=== PATIENT | female | born 1945 | race Caucasian/White ===

== ENCOUNTER → 2016-09-21 | Outpatient (CLI) | payer OTHER ==
[~2016-09-21] MED LIST: ALL60 PO; ASPEC81 PO; CLTP PO; DRV100 PO; FBR PO; SIMV40TA2 PO
[2016-09-21 09:47] LABS: ESTIMATED AVERAGE GLUCOSE 134 mg/dl; HA1C FLAG Normal (Normal)
[2016-09-21 09:55] LABS: BLOOD UREA NITROGEN 16 mg/dl (7-18); BUN/CREATININE RATIO 21.5 (10-20); CALCIUM 9.3 mg/dl (8.5-10.1); CARBON DIOXIDE 29 mmol/L (21-32); CHLORIDE 104 mmol/L (98-107); CREATININE 0.74 mg/dl (0.60-1.20); GLUCOSE 119 mg/dl (70-99); POTASSIUM 3.9 mmol/L (3.5-5.1); SODIUM 141 mmol/L (136-145)
[2016-09-21 09:59] LABS: CHOLESTEROL 173 mg/dl (0-200); HDL CHOLESTEROL 57 mg/dl; TRIGLYCERIDES 112 mg/dl (0-150); VERY LOW DENSITY LIPOPROT CALC 22 mg/dl
== END | disposition home or self-care (01) ==
LOC: C.LAB 08:26
PROVIDERS: ATTEND Internal Medicine
DX: Z00.00 Encounter for general adult medical examination without abnormal findings (principal); E78.5 Hyperlipidemia, unspecified; E11.9 Type 2 diabetes mellitus without complications

== ENCOUNTER → 2016-10-03 | Outpatient (CLI) | payer OTHER ==
--- NOTE | 2016-10-03 16:47 | MAMMOGRAPHY REPORT ---
BILATERAL DIGITAL SCREENING MAMMOGRAM WITH CAD: 10/03/2016 CLINICAL HISTORY: Routine screening. Patient has no complaints. TECHNIQUE: Bilateral CC and MLO views were obtained. Current study was also evaluated with a Comput er Aided Detection (CAD) system. COMPARISON: Comparison is made to exams dated: 10/01/2015 mammogram, 08/12/2013 mammogram, 08/19/2014 mammogram, 08/09/2012 mammogram, 07/26/2011 mammogram, and 07/22/2010 mammogram - [facility]. BREAST COMPOSITION: The tissue of both breasts is heterogeneously dense, which may obscure small ma sses. FINDINGS: There are 2 circumscribed subcentimeter benign-appearing masses in the lateral anterior le ft breast on the CC view, that are unchanged in size dating back to at least 07/15/2008, therefore l ikely benign. There are stable scattered benign-appearing round and punctate microcalcifications in the breasts. No suspicious mass, architectural distortion or cluster of microcalcifications is see n. IMPRESSION: ACR BI-RADS CATEGORY 1: NEGATIVE There is no mammographic evidence of malignancy. A 1 year screening mammogram is recommended. The p atient will receive written notification of the results. Approximately 10% of breast cancers are not detected with mammography. A negative mammographic repor t should not delay biopsy if a clinically suggestive mass is present. Marisol Guzman M.D. ay/:10/03/2016 15:01:03 Rotary Drill Operator: Erin CAN(R)(M), [facility] letter sent: Normal 1/2 BI-RADS Code: ACR BI-RADS Category 1: Negative
== END | disposition home or self-care (01) ==
LOC: C.MAMM 13:53
PROVIDERS: ATTEND Internal Medicine
DX: Z12.31 Encounter for screening mammogram for malignant neoplasm of breast (principal)

== ENCOUNTER → 2016-10-04 | Outpatient (CLI) | payer OTHER | END | disposition home or self-care (01) | LOC: C.LABSPEC 12:58 | PROVIDERS: ATTEND Internal Medicine | DX: Z12.11 Encounter for screening for malignant neoplasm of colon (principal) ==

== ENCOUNTER → 2017-03-22 | Outpatient (CLI) | payer OTHER ==
[2017-03-22 09:58] LABS: ESTIMATED AVERAGE GLUCOSE 134 mg/dl; HA1C FLAG Normal (Normal)
[2017-03-22 10:27] LABS: BLOOD UREA NITROGEN 15 mg/dl (7-18); BUN/CREATININE RATIO 16.3 (10-20); CALCIUM 9.4 mg/dl (8.5-10.1); CARBON DIOXIDE 26 mmol/L (21-32); CHLORIDE 106 mmol/L (98-107); CREATININE 0.91 mg/dl (0.60-1.20); GLUCOSE 118 mg/dl (70-99); POTASSIUM 4.1 mmol/L (3.5-5.1); SODIUM 142 mmol/L (136-145)
[2017-03-22 10:33] LABS: CHOLESTEROL 154 mg/dl (0-200); HDL CHOLESTEROL 51 mg/dl; TRIGLYCERIDES 99 mg/dl (0-150); VERY LOW DENSITY LIPOPROT CALC 20 mg/dl
[2017-03-22 10:42] LABS: RATIO 11.9 mcg/mg (0-30.0)
== END | disposition home or self-care (01) ==
LOC: C.LAB 08:07
PROVIDERS: ATTEND Internal Medicine
DX: E11.9 Type 2 diabetes mellitus without complications (principal); E78.5 Hyperlipidemia, unspecified

== ENCOUNTER → 2017-09-21 | Outpatient (CLI) | payer OTHER ==
[~2017-09-21] MED LIST changes: -ALL60 PO; +ASPCH81X PO; -ASPEC81 PO; +CHOL100010 PO; -CLTP PO; +COEN100C11 PO; -DRV100 PO; -FBR PO; +FEXO5TAB2 PO; +GLC/500 PO
[2017-09-21 16:14] LABS: BLOOD UREA NITROGEN 14 mg/dl (7-18); CALCIUM 9.1 mg/dl (8.5-10.1); CARBON DIOXIDE 30 mmol/L (21-32); GLUCOSE 96 mg/dl (70-99); POTASSIUM 3.8 mmol/L (3.5-5.1); SODIUM 138 mmol/L (136-145)
[2017-09-21 16:24] LABS: HEMATOCRIT 39.2 % (37-47); HEMOGLOBIN 13.4 g/dL (12.0-16.0); MEAN CELL VOLUME 89.7 fL (80-100); MEAN CORPUSCULAR HEMOGLOBIN 30.7 pg (25-34); MEAN CORPUSCULAR HGB CONC 34.2 g/dl (32-36); MEAN PLATELET VOLUME 11.4 fL (7.4-10.4); PLATELET COUNT 285 K/uL (130-400); RED CELL DISTRIBUTION WIDTH CV 12.3 % (11.5-14.5); RED CELL DISTRIBUTION WIDTH SD 40.2 fL (36.4-46.3); WHITE BLOOD COUNT 6.15 K/uL (4.8-10.8)
== END | disposition home or self-care (01) ==
LOC: C.LAB1850 14:48
PROVIDERS: ATTEND Obstetrics & Gynecology
DX: Z01.810 Encounter for preprocedural cardiovascular examination (principal); Z01.812 Encounter for preprocedural laboratory examination

== ENCOUNTER → 2017-09-26 | Outpatient (CLI) | payer OTHER ==
[2017-09-26 13:39] LABS: HEMOGLOBIN A1C 6.6 % (4.5-5.6)
[2017-09-26 14:09] LABS: CHOLESTEROL 129 mg/dl (0-200); LDL CHOLESTEROL (DIRECT) 83 mg/dl
== END | disposition home or self-care (01) ==
LOC: C.LABSPEC 12:58
PROVIDERS: ATTEND Internal Medicine
DX: E11.9 Type 2 diabetes mellitus without complications (principal); E78.5 Hyperlipidemia, unspecified

== ENCOUNTER → 2017-09-28 | Day surgery (SDC) | payer OTHER ==
[2017-09-13 14:37] VITALS: Ht 161.3 cm; Wt 63.2 kg
[~2017-09-28] VITALS: Ht 161.3 cm; Wt 63.2 kg
[~2017-09-28] MED LIST changes: +ATROPINE SULFATE 0.1 MG/ML 5ML SYR IV PRN; +DEXAMETHASONE SOD INJ 4 MG/ML VIAL ONE; +EpHEDrine SULFATE INJ 50 MG/ML AMP IV PRN; +EpHEDrine SULFATE INJ 50 MG/ML AMP ONE; +FENTANYL CITRATE INJ 50 MCG/1 ML 2 ML VIAL IV PRN; +FENTANYL CITRATE INJ 50 MCG/1 ML 2 ML VIAL ONE; +HYDROmorphone INJ 1 MG/ML SYR IV PRN; +KETOROLAC TROMETHAMINE 30 MG/ML VIAL ONE; +LACTATED RINGER'S 1000ML 1,000 ML IV SCH; +LIDOCAINE HCL 2% 2 ML VIAL (20MG/ML) ONE; +MIDAZOLAM HCL 1 MG/ML 2ML VIAL ONE; +ONDANSETRON INJ 2 MG/ML 2 ML VIAL IV PRN; +ONDANSETRON INJ 2 MG/ML 2 ML VIAL ONE; +OXYCODONE/ACETAMINOPHEN 5-325 TAB PO PRN; +PHENYLEPHRINE 100MCG/ML 5ML SYR IV PRN; +PROMETHAZINE HCL INJ 25 MG in SODIUM CHLORIDE 0.9% 50ML 50 ML IV PRN; +PROPOFOL IV EMULSION 10 MG/ML 20 ML VIAL IV ONE; +SODIUM CHLORIDE 0.9% 1000ML 1,000 ML IV SCH
--- NOTE | 2017-09-28 06:54 | History & Physical Bridge - SC ---
H&P Re-Evaluation Bridge Note: I have examined the patient, reviewed the History & Physical and in the interval since the performance of the History & Physical I have noted the following changes of clinical significance: No changes noted
--- NOTE | 2017-09-28 07:49 | [facility] Post Operative Brief Note ---
Immediate Operative Summary Operative Date Sep 28, 2017. Pre-Operative Diagnosis Post Menopausal Bleeding Post-Operative Diagnosis same Procedure(s) Performed Fractional Dilatation And Curettage, Hysteroscopy, Polypectomy Surgeon Dr Ruano Mobile Home Technician Surgeon(s) none Estimated Blood Loss 5 ml Findings Large amount of fluffy endometrium, with vasculature within. Right tubal ostia visualized, left not visualized due to inability to see around the intrauterine mass. Specimens 1. Urine culture and sensitivity, urinalysis A) Endocervical curettings B) Endometrial curettings Drains Bladder drained prior to procedure, sent for UA C&S Anesthesia general Complication(s) None Disposition Recovery Room / PACU
--- NOTE | 2017-09-28 07:52 | Discharge Instructions-SurgCtr ---
Discharge Instructions Date of Service Sep 28, 2017. Visit Reason for Visit: Post Menopausal Bleeding Discharge Discharge Diagnosis / Problem: postmenopausal bleeding Discharge Goals Goal(s): Diagnostic testing Medications Stopped Medications Name(s): Metformin last taken 09/25/17 Activity Recommendations Activity Limitations: per Instructions/Follow-up section Anesthesia . Post Anesthesia Instructions: If you have had General Anesthesia or IV Sedation: * Do not drive today. * Resume driving when surgeon permits. * Do not make important decisions or sign legal documents today. * Call surgeon for: 1. Temperature elevations greater than 101 degrees F. 2. Uncontrollable pain. 3. Excessive bleeding. 4. Persistent nausea and vomiting. 5. Medication intolerance (nausea, vomiting or rash). * For nausea and vomiting use only clear liquids such as: tea, soda, bouillon until nausea subsides, then gradually increase diet as tolerated. * If you have any concerns or questions, call your surgeon's office. If physician is unavailable and it is an emergency, call 911 or go to the nearest emergency room. . Instructions / Follow-Up Instructions / Follow-Up ACTIVITY RECOMMENDATIONS: * Avoid tampons, douching, hot tubs, pools, and intercourse until bleeding has stopped. * May shower as usual. * No strenuous activity for 24-48 hours. After 24-48 hours, you may do anything you feel like doing (driving and sports are okay). SPECIAL CARE INSTRUCTIONS: Special Diet: * Mild nausea may occur in the immediate post-operative period. * Take clear liquids such as tea, cola or bouillon until all nausea has subsided; you may then resume your normal diet. Special Care: * Light bleeding and vaginal spotting can last from a few days to 3-4 weeks. Call your doctor if bleeding becomes heavier than the heaviest part of your period. * Check your temperature twice a day for one week. If it goes above 100.4 degrees Fahrenheit (38.0 Celsius), notify your doctor. * Call your doctor's office for an appointment for 6 weeks after your surgery. FOLLOW-UP VISIT: Call your doctor's office for an appointment for 6 weeks after your surgery. Diet Recommendations Home Diet: resume previous diet Procedures Procedures Performed: Fractional Dilatation And Curettage, Hysteroscopy, Polypectomy Pending Studies Studies pending at discharge: yes List of pending studies: UA C&S, pathology results Medical Emergencies . Who to Call and When: Medical Emergencies: If at any time you feel your situation is an emergency, please call 911 immediately. . Non-Emergent Contact Non-Emergency issues call your: Primary Care Provider, Performance Tester . . "Provider Documentation" section prepared by Iliana Ruano. .
--- NOTE | 2017-09-28 08:36 | OPERATIVE REPORT ---
DATE OF OPERATION: 09/28/2017 PREOPERATIVE DIAGNOSIS: Postmenopausal bleeding. POSTOPERATIVE DIAGNOSIS: Same. PROCEDURES PERFORMED: Fractional dilation and curettage, hysteroscopy. Polypectomy was not performed, although it is erroneously listed in the brief operative note that will be corrected in the charting. SURGEON: Iliana Ruano D.O. EDGER LINER: None. ESTIMATED BLOOD LOSS: 5 mL. FINDINGS: Large amount of fluffy endometrium with vasculature within, right tubal ostia visualized. The left was not visualized due to inability to see around the intrauterine mass. SPECIMENS: Urine culture and sensitivity in urinalysis, endometrial curettings and endocervical curettings. DRAINS: Bladder drained prior to procedure. ANESTHESIA: General. COMPLICATIONS: None. DISPOSITION: Stable and good to recovery area. INDICATIONS FOR PROCEDURE: The patient is a 72-year-old who had episodes of postmenopausal bleeding. Ultrasound showed a concerning endometrial mass so she was taken to the operating room for D&C. OPERATION AND FINDINGS: DESCRIPTION OF PROCEDURE: The patient was seen in the preoperative holding area where risks, benefits, alternatives to surgery were reviewed. She elected to proceed with surgery. All questions were answered. She had previously signed informed consent in the office under no duress. She was taken to the operating room where general anesthesia was administered. She was prepared and draped in the usual sterile fashion with feet in Yellofin stirrups in the dorsal lithotomy position. A timeout was confirmed. The bladder was drained prior to procedure for clear yellow urine. A weighted speculum was placed in the vagina. The cervix was visualized and the anterior lip was grasped with a single tooth tenaculum. The endocervical curettage was undertaken first. This specimen was sent to pathology. Next, the uterus was sounded to 8 cm and the cervix was gently dilated sequentially to admit a hysteroscope. Hysteroscope was inserted. The above noted findings were seen. Pictures were taken. Hysteroscope was withdrawn and a gentle curettage with a sharp curette was undertaken. All of this sample was sent to pathology labeled endometrial curettings. All instruments were removed from the vagina. Excellent hemostasis was noted. The patient was awoken from anesthesia and taken to recovery area in stable and good condition. I attest to the content of the Intraoperative Record and any orders documented therein. Any exception s are noted below.
[2017-09-28 08:44] VITALS: TEMP 36.5
--- NOTE | 2017-09-28 09:06 | Anesthesia Progress Nt - [facility] ---
Anesthesia Post Op Note Date & Time Sep 28, 2017 at 09:06 Vital Signs Pain Intensity: 0 Vital Signs Past 12 Hours Date Time Temp Pulse Resp B/P (MAP) Pulse Ox O2 Delivery O2 Flow Rate FiO2 09/28/17 08:44 36.5 70 16 128/64 (85) 98 Room Air 09/28/17 08:21 75 13 98 09/28/17 08:21 75 13 09/28/17 08:20 129/51 09/28/17 08:19 37.1 75 14 129/73 100 Room Air 09/28/17 08:16 75 11 126/53 98 09/28/17 08:16 75 11 09/28/17 08:11 84 17 99 09/28/17 08:11 83 17 09/28/17 08:10 132/60 09/28/17 08:06 90 16 100 09/28/17 08:06 89 16 09/28/17 08:05 134/62 09/28/17 08:01 96 17 100 09/28/17 08:01 96 17 09/28/17 08:00 127/63 09/28/17 07:56 97 18 09/28/17 07:56 94 18 100 09/28/17 07:55 111/57 09/28/17 07:52 110/61 09/28/17 07:51 83 09/28/17 07:51 36.2 93 12 110/70 100 Diffusion Mask 6 09/28/17 07:51 83 100 09/28/17 06:46 36.8 83 20 154/67 (96) 99 Room Air Notes Mental Status: alert / awake / arousable, participated in evaluation Pt Amnestic to Procedure: Yes Nausea / Vomiting: adequately controlled Pain: adequately controlled Airway Patency, RR, SpO2: stable & adequate BP & HR: stable & adequate Hydration State: stable & adequate Anesthetic Complications: no major complications apparent
[2017-09-28 09:12] VITALS: BP 139/65; PULSE 78; O2SAT 100
== END | disposition home or self-care (01) ==
LOC: X.SURG 06:20
PROVIDERS: ATTEND Obstetrics & Gynecology
DX: N95.0 Postmenopausal bleeding (principal); E11.9 Type 2 diabetes mellitus without complications; E78.5 Hyperlipidemia, unspecified; M19.90 Unspecified osteoarthritis, unspecified site; Z86.73 Personal history of transient ischemic attack (TIA), and cerebral infarction without residual deficits; Z79.82 Long term (current) use of aspirin; Z79.84 Long term (current) use of oral hypoglycemic drugs; Z79.899 Other long term (current) drug therapy

== ENCOUNTER → 2017-10-04 | Outpatient (CLI) | payer OTHER ==
[~2017-10-04] MED LIST changes: -ATROPINE SULFATE 0.1 MG/ML 5ML SYR IV PRN; -DEXAMETHASONE SOD INJ 4 MG/ML VIAL ONE; -EpHEDrine SULFATE INJ 50 MG/ML AMP IV PRN; -EpHEDrine SULFATE INJ 50 MG/ML AMP ONE; -FENTANYL CITRATE INJ 50 MCG/1 ML 2 ML VIAL IV PRN; -FENTANYL CITRATE INJ 50 MCG/1 ML 2 ML VIAL ONE; -HYDROmorphone INJ 1 MG/ML SYR IV PRN; -KETOROLAC TROMETHAMINE 30 MG/ML VIAL ONE; -LACTATED RINGER'S 1000ML 1,000 ML IV SCH; -LIDOCAINE HCL 2% 2 ML VIAL (20MG/ML) ONE; -MIDAZOLAM HCL 1 MG/ML 2ML VIAL ONE; -ONDANSETRON INJ 2 MG/ML 2 ML VIAL IV PRN; -ONDANSETRON INJ 2 MG/ML 2 ML VIAL ONE; -OXYCODONE/ACETAMINOPHEN 5-325 TAB PO PRN; -PHENYLEPHRINE 100MCG/ML 5ML SYR IV PRN; -PROMETHAZINE HCL INJ 25 MG in SODIUM CHLORIDE 0.9% 50ML 50 ML IV PRN; -PROPOFOL IV EMULSION 10 MG/ML 20 ML VIAL IV ONE; -SODIUM CHLORIDE 0.9% 1000ML 1,000 ML IV SCH
--- NOTE | 2017-10-04 15:01 | DIAGNOSTIC IMAGING REPORT ---
CHEST 2 VIEWS ROUTINE HISTORY: Preop. COMPARISON: Chest 07/16/2009. FINDINGS: The lungs are clear. Cardiac silhouette is normal in size. No pleural effusions. No pneumothorax. IMPRESSION: No acute process. Electronically signed by: Sumanth Pal M.D. 10/04/2017 3:00 PM Dictated Date/Time: 10/04/2017 2:56 PM
== END | disposition home or self-care (01) ==
LOC: C.RAD1850 14:39
PROVIDERS: ATTEND Obstetrics & Gynecology Gynecologic Oncology
DX: Z01.818 Encounter for other preprocedural examination (principal); C54.1 Malignant neoplasm of endometrium

== ENCOUNTER → 2017-10-04 | Outpatient (CLI) | payer OTHER ==
--- NOTE | 2017-10-05 13:43 | MAMMOGRAPHY REPORT ---
BILATERAL DIGITAL SCREENING MAMMOGRAM TOMOSYNTHESIS WITH CAD: 10/04/2017 CLINICAL HISTORY: Routine screening. TECHNIQUE: Breast tomosynthesis in addition to standard 2D mammography was performed. Current study was also evaluated with a Computer Aided Detection (CAD) system. COMPARISON: Comparison is made to exams dated: 10/03/2016 mammogram, 10/01/2015 mammogram, 08/19/2014 m ammogram, 08/12/2013 mammogram, 08/09/2012 mammogram, and 07/26/2011 mammogram - [facility]. BREAST COMPOSITION: The tissue of both breasts is heterogeneously dense, which may obscure small mas ses. FINDINGS: A benign circumscribed 8mm mass in the lateral anterior left breast is stable in size dati ng back to at least 07/26/2011, therefore considered benign. No new suspicious mass, architectural d istortion or cluster of microcalcifications is seen. IMPRESSION: ACR BI-RADS CATEGORY 1: NEGATIVE There is no mammographic evidence of malignancy. A 1 year screening mammogram is recommended. The pa tient will receive written notification of the results. Approximately 10% of breast cancers are not detected with mammography. A negative mammographic report should not delay biopsy if a clinically suggestive mass is present. Marisol Guzman M.D. ay/:10/04/2017 15:37:23 Facilities Maintenance Worker: Brain CAN(Brii)(M), [facility] letter sent: Normal 1/2 BI-RADS Code: ACR BI-RADS Category 1: Negative
== END | disposition home or self-care (01) ==
LOC: C.MAMM 14:05
PROVIDERS: ATTEND Internal Medicine
DX: Z12.31 Encounter for screening mammogram for malignant neoplasm of breast (principal)

== ENCOUNTER → 2017-12-04 | Day surgery (SDC) | payer OTHER ==
[2017-11-29 15:01] VITALS: BMI 23.0
[~2017-12-04] VITALS: Ht 160 cm; Wt 61.4 kg
[~2017-12-04] MED LIST changes: +ATROPINE SULFATE 0.1 MG/ML 5ML SYR IV PRN; +BUPIVACAINE 0.5 % 5 MG/1 ML MPF 30ML VIAL ONE; +CEFAZOLIN 2000MG IV PUSH 15 ML IV SCH; +EpHEDrine SULFATE INJ 50 MG/ML AMP IV PRN; +FENTANYL CITRATE INJ 50 MCG/1 ML 2 ML VIAL IV PRN; +FENTANYL CITRATE INJ 50 MCG/1 ML 2 ML VIAL ONE; +HEPARIN SOD (PORCINE) 1000 UNIT/ML 10 ML VIAL ONE; +HYDROCODONE/ACETAMIN 5/325MG TAB PO PRN; +IBUP-1050 PO; +LACTATED RINGER'S 1000ML 1,000 ML IV SCH; +LIDOCAINE HCL 2% 2 ML VIAL (20MG/ML) ONE; +LIDOCAINE/EPINEPHRINE 1% 20 ML VIAL ONE; +MIDAZOLAM HCL 1 MG/ML 2ML VIAL ONE; +MoRPHine SULFATE 2 MG/ML CARP IV PRN; +NAPR1TAB9 PO; +ONDANSETRON INJ 2 MG/ML 2 ML VIAL IV PRN; +PROPOFOL IV EMULSION 10 MG/ML 20 ML VIAL IV ONE
[2017-12-04 06:31] VITALS: BP 160/59; PULSE 76; TEMP 36.5; O2SAT 99; Ht 160 cm; Wt 61.4 kg
--- NOTE | 2017-12-04 09:07 | Discharge Instructions ---
Discharge Instructions Date of Service Dec 04, 2017. Visit Reason for Visit: Endometrial Cancer, Diabetes Discharge Discharge Diagnosis / Problem: A-port Discharge Goals Goal(s): Therapeutic intervention Activity Recommendations Activity Limitations: resume your previous activity Shower/Bathe: no limitations Anesthesia . Post Anesthesia Instructions: If you have had General Anesthesia or IV Sedation: * Do not drive today. * Resume driving when surgeon permits. * Do not make important decisions or sign legal documents today. * Call surgeon for: 1. Temperature elevations greater than 101 degrees F. 2. Uncontrollable pain. 3. Excessive bleeding. 4. Persistent nausea and vomiting. 5. Medication intolerance (nausea, vomiting or rash). * For nausea and vomiting use only clear liquids such as: tea, soda, bouillon until nausea subsides, then gradually increase diet as tolerated. * If you have any concerns or questions, call your surgeon's office. If physician is unavailable and it is an emergency, call 911 or go to the nearest emergency room. . Instructions / Follow-Up Instructions / Follow-Up Dr. Nevarez office in 1-2 weeks as planned, call [phone] if you have any questions or need to schedule Diet Recommendations Recommended Home Diet: no limitations Pending Studies Studies pending at discharge: no Medical Emergencies . Who to Call and When: Medical Emergencies: If at any time you feel your situation is an emergency, please call 911 immediately. . Non-Emergent Contact Non-Emergency issues call your: Surgeon Call Non-Emergent contact if: you have a fever, temperature is above 101.5, your pain is not controlled, wound has increased redness, you have any medication questions . . "Provider Documentation" section prepared by Martin Allen. .
--- NOTE | 2017-12-04 09:25 | [facility] Post Operative Brief Note ---
Immediate Operative Summary Operative Date Dec 04, 2017. Pre-Operative Diagnosis Endometrial Carcinoma Post-Operative Diagnosis Endometrial Carcinoma Procedure(s) Performed Left Internal Jugular Vein Mediport Placement with Real-time Ultrasound Guidance and Fluoroscopy Surgeon Apparatus Cleaner Surgeon(s) None Estimated Blood Loss 7ML Findings Consistent with Post-Op Diagnosis Left Internal jugular vein port placement Specimens None per surgeon Drains None Anesthesia Type MAC Complication(s) none Disposition Accompanied Pt To Recover: no Disposition: Recovery Room / PACU
--- NOTE | 2017-12-04 09:29 | [facility] Operative Report ---
Operative Report Operative Date Dec 04, 2017. Pre-Operative Diagnosis Endometrial Carcinoma Post-Operative Diagnosis Same Procedure(s) Performed Left internal jugular vein port placement with real-time ultrasound guidance and fluoroscopy Surgeon Sugar Presser Surgeon(s) None Estimated Blood Loss 7ML Findings Left internal jugular vein accessed using real-time ultrasound guidance. Catheter placement confirmed with fluoroscopy. Specimens None per surgeon Drains None Anesthesia MAC/local Complication(s) None Disposition Recovery Room / PACU Indications 72-year-old female with endometrial cancer requiring chemotherapy, plan for port placement. The risks of the procedure were discussed, all questions were answered, and the patient agreed to proceed with surgery as planned. Description of Procedure The patient was properly identified, consented, and taken to the operating room where she was placed in the supine position with both arms tucked and a shoulder roll placed vertically. Monitored anesthesia care was induced. SCDs and a safety belt were placed. Preoperative antibiotics were administered. The patient's chest and neck was prepped and draped in the standard sterile fashion. Surgical timeout was performed and all parties were in agreement that this was the correct patient and procedure to be performed and we continued as planned. The patient was placed in Trendelenburg position. Local anesthetic was injected along the skin incision. Using real-time ultrasound guidance the left internal jugular vein was accessed using the access needle. The wire was placed and the needle was removed. Fluoroscopy confirmed placement into the internal jugular vein extending into the superior vena cava. Transverse skin incision was in the chest made and a pocket was created for the port. A subcutaneous tunnel was created and the catheter was brought from the neck incision into the chest incision. The dilator and peel-away sheath were inserted over the wire. The catheter was then inserted through the peel-away sheath and fluoroscopy confirmed placement into the superior vena cava. The catheter was cut and attached to the port. The port was secured into place with 3-0 Prolene sutures. A final x-ray revealed good placement of the port. The wound was irrigated and hemostasis was confirmed. The skin was closed with interrupted 3-0 Vicryl deep dermal sutures, followed by 4-0 Monocryl running subcuticular suture. Dermabond was placed over the wound. The port was accessed and rob blood easily and flushed easily. It was flushed with heparinized saline. The patient taken to the PACU where she recovered without apparent incident. All sponge, instrument and needle counts were correct at the conclusion of the procedure. The patient tolerated the procedure well. Chest x-ray was pending at the conclusion of this dictation. I attest to the content of the Intraoperative Record and any orders documented therein. Any exceptions are noted below.
--- NOTE | 2017-12-04 09:30 | [facility] Operative Report ---
Operative Report Operative Date Dec 04, 2017. Pre-Operative Diagnosis Endometrial Carcinoma Surgeon Findings Real-time ultrasound guidance was used to access the left internal jugular vein. Fluoroscopy was used and interpreted by the surgeon for placement of the catheter. A total of 15 seconds of fluoroscopy time was utilized. I attest to the content of the Intraoperative Record and any orders documented therein. Any exceptions are noted below.
--- NOTE | 2017-12-04 09:59 | DIAGNOSTIC IMAGING REPORT ---
SINGLE VIEW CHEST CLINICAL HISTORY: Infusion port placement. FINDINGS: An AP, portable, upright chest radiograph is compared to study dated 10/04/2017. The examination is degraded by portable technique and patient rotation. A left internal jugular central venous infusion port has been placed. The tip of the catheter projects over the SVC. The cardiomediastinal silhouette is unremarkable. Chronic interstitial thickening is similar to previous. No airspace consolidation or pleural effusion is identified. Mild apical scarring is observed. No pneumothorax is seen. The skeletal structures are osteopenic. Degenerative change is noted throughout the thoracic spine. IMPRESSION: 1. A left internal jugular central venous infusion port has been placed. No pneumothorax is seen post procedure. 2. No airspace consolidation or pleural effusion is identified. Electronically signed by: Jarrod Smith M.D. 12/04/2017 9:58 AM Dictated Date/Time: 12/04/2017 9:53 AM
[2017-12-04 10:10] VITALS: BP 158/81; PULSE 66; TEMP 36.5; O2SAT 98
[2017-12-04 10:38] VITALS: BP 161/62; PULSE 60; TEMP 36.7; O2SAT 97
--- NOTE | 2017-12-04 12:59 | Anesthesiology Progress Note ---
Anesthesia Post Op Note Date & Time Dec 04, 2017 at 12:59 Vital Signs Pain Intensity: 0 Vital Signs Past 12 Hours Date Time Temp Pulse Resp B/P (MAP) Pulse Ox O2 Delivery O2 Flow Rate FiO2 12/04/17 10:38 36.7 60 18 161/62 97 Room Air 12/04/17 10:10 36.5 66 18 158/81 98 Room Air 12/04/17 09:57 124/96 12/04/17 09:55 67 19 12/04/17 09:55 66 19 98 12/04/17 09:52 151/86 12/04/17 09:52 36.6 69 18 151/86 (111) 99 Room Air 12/04/17 09:50 67 17 99 12/04/17 09:50 66 17 12/04/17 09:47 143/77 12/04/17 09:45 70 24 98 12/04/17 09:45 70 24 12/04/17 09:42 117/66 12/04/17 09:40 72 24 12/04/17 09:40 72 24 96 12/04/17 09:37 133/66 12/04/17 09:35 71 13 12/04/17 09:35 72 13 98 12/04/17 09:34 79 10 12/04/17 09:34 80 10 99 12/04/17 09:34 80 10 99 12/04/17 09:34 79 10 12/04/17 09:31 128/62 12/04/17 09:31 128/62 12/04/17 09:29 73 18 128/55 (70) 98 Nasal Cannula 2 12/04/17 06:31 36.5 76 20 160/59 (92) 99 Room Air Notes Mental Status: alert / awake / arousable, participated in evaluation Pt Amnestic to Procedure: Yes Nausea / Vomiting: adequately controlled Pain: adequately controlled Airway Patency, RR, SpO2: stable & adequate BP & HR: stable & adequate Hydration State: stable & adequate Anesthetic Complications: no major complications apparent
== END | disposition home or self-care (01) ==
LOC: C.ACU 06:16
PROVIDERS: ATTEND Surgery
DX: C54.1 Malignant neoplasm of endometrium (principal); E11.9 Type 2 diabetes mellitus without complications; M19.90 Unspecified osteoarthritis, unspecified site; N95.0 Postmenopausal bleeding; Z90.710 Acquired absence of both cervix and uterus; Z90.722 Acquired absence of ovaries, bilateral; Z90.79 Acquired absence of other genital organ(s); Z79.82 Long term (current) use of aspirin; Z87.440 Personal history of urinary (tract) infections; Z83.3 Family history of diabetes mellitus; Z82.49 Family history of ischemic heart disease and other diseases of the circulatory system; Z80.0 Family history of malignant neoplasm of digestive organs; Z80.3 Family history of malignant neoplasm of breast

== ENCOUNTER → 2017-12-13 | Outpatient (CLI) | payer OTHER ==
[~2017-12-13] MED LIST changes: -ATROPINE SULFATE 0.1 MG/ML 5ML SYR IV PRN; -BUPIVACAINE 0.5 % 5 MG/1 ML MPF 30ML VIAL ONE; -CEFAZOLIN 2000MG IV PUSH 15 ML IV SCH; -EpHEDrine SULFATE INJ 50 MG/ML AMP IV PRN; -FENTANYL CITRATE INJ 50 MCG/1 ML 2 ML VIAL IV PRN; -FENTANYL CITRATE INJ 50 MCG/1 ML 2 ML VIAL ONE; -HEPARIN SOD (PORCINE) 1000 UNIT/ML 10 ML VIAL ONE; -HYDROCODONE/ACETAMIN 5/325MG TAB PO PRN; -LACTATED RINGER'S 1000ML 1,000 ML IV SCH; -LIDOCAINE HCL 2% 2 ML VIAL (20MG/ML) ONE; -LIDOCAINE/EPINEPHRINE 1% 20 ML VIAL ONE; -MIDAZOLAM HCL 1 MG/ML 2ML VIAL ONE; -MoRPHine SULFATE 2 MG/ML CARP IV PRN; -ONDANSETRON INJ 2 MG/ML 2 ML VIAL IV PRN; -PROPOFOL IV EMULSION 10 MG/ML 20 ML VIAL IV ONE
--- NOTE | 2017-12-13 14:22 | DIAGNOSTIC IMAGING REPORT ---
A-PORT CHECK CLINICAL HISTORY: Arm pain. Axillary pain. Recent port insertion. COMPARISON STUDY: Chest radiograph December 04, 2017. Fluoroscopy time: 0.1 minutes. FINDINGS: Datastage Developer image demonstrates intact left internal jugular vein [id number] with tip projecting over the distal SVC. Following injection of contrast, expected filling of the SVC was noted. The catheter appears intact. No contrast extravasation was noted. IMPRESSION: Patent, intact left internal jugular [id number]. No abnormality identified. Electronically signed by: Wiliam Brewster M.D. 12/13/2017 2:21 PM Dictated Date/Time: 12/13/2017 2:19 PM
== END | disposition home or self-care (01) ==
LOC: C.RAD 13:28
PROVIDERS: ATTEND Surgery
DX: M79.603 Pain in arm, unspecified (principal); M79.629 Pain in unspecified upper arm

== ENCOUNTER 2025-08-05 07:55 | Inpatient (IN) ==
--- NOTE | 2025-07-11 11:34 | PAT Medication Instructions ---
Medication Instructions Date of Service July 11, 2025 Home Medications fexofenadine 60 mg tablet 60 mg PO DAILY PRN ALLERGY RELIEF metformin 500 mg tablet 500 mg PO BID simvastatin 40 mg tablet 40 mg PO QPM aspirin 81 mg tablet,delayed release 81 mg PO QAM acetaminophen 500 mg tablet 500 mg PO QID PRN Pain cholecalciferol (vitamin D3) 50 mcg (2,000 unit) capsule (Vitamin D3) 50 mcg PO QAM coenzyme Q10 100 mg capsule (Co Q-10) 100 mg PO QAM horse chestnut seed extract 250 mg capsule 250 mg PO BID turmeric root extract 500 mg tablet 500 mg PO BID ASK your prescriber and surgeon aspirin 81 mg tablet,delayed release 81 mg PO QAM STOP taking 2 weeks before surgery (or as soon as possible if surgery is within 2 weeks) coenzyme Q10 100 mg capsule (Co Q-10) 100 mg PO QAM horse chestnut seed extract 250 mg capsule 250 mg PO BID turmeric root extract 500 mg tablet 500 mg PO BID DO NOT take the morning of surgery fexofenadine 60 mg tablet 60 mg PO DAILY PRN ALLERGY RELIEF metformin 500 mg tablet 500 mg PO BID cholecalciferol (vitamin D3) 50 mcg (2,000 unit) capsule (Vitamin D3) 50 mcg PO QAM Take morning of surgery With a small sip of water, OTHERWISE NOTHING TO EAT OR DRINK AFTER MIDNIGHT: acetaminophen 500 mg tablet 500 mg PO QID PRN Pain (if needed) Take evening before surgery fexofenadine 60 mg tablet 60 mg PO DAILY PRN ALLERGY RELIEF (if needed) metformin 500 mg tablet 500 mg PO BID simvastatin 40 mg tablet 40 mg PO QPM acetaminophen 500 mg tablet 500 mg PO QID PRN Pain (if needed) Other Notes If you have any questions please call us at [phone] or [phone] or [phone] or [phone]
--- NOTE | 2025-07-22 14:01 | Anesthesiology Consultation ---
Date of Service July 22, 2025 Assessment & Plan (1) Encounter for pre-operative examination: Chart Review Chart Review: Acceptable Risk for Surgery and Patient seen in Pre Admission Testing - Please send preop lab results to PCP (Dr. Mac) for continuity of care - Check BSG AM DOS Sensitive to narcotics - seems to tolerate to Dilaudid the best per patient Per PAT appt on 07/22/25, no recent illness/disease exposures, illness related symptoms, or recent illness/disease positive tests. Will leave to surgeon's discretion if preop Covid testing needed PCP office visit 07/09/25= "... chronic back pain... to have surgery on August 05... preop labs to done 07/22/25... EKG was normal on 02/25/25... Pt cleared to proceed with surgery without further testing, pending the lab results of 07/22/25..." PCP order form 07/09/25= "Claire cleared for surgery without further testing if labs of 07/22/25 ok" (No issues noted on preop labs) Teaching & Discussion Pre-Anesthesia Teaching/Discussion Notes: Instructed NPO after midnight before surgery,except medications with 15 cc of water. Medication instructions provided according to the PAT guidelines. History Surgery Operation Date: 08/05/25 07:45 Proposed Procedures p L5-S1 Hardware Removal, L4-L5 Decompression and Fusion, L3 Kyphoplasty - David Eisenberg, Height/Weight Height: 5 ft 3 in Weight: 57 kg Allergies Allergy/AdvReac Type Severity Reaction Status Date / Time narcotics AdvReac "sensitive Uncoded 07/11/25 11:19 to ALL narcotics" Medications Home Medications Medication Instructions Recorded Confirmed Last Taken fexofenadine 60 mg tablet 60 mg PO DAILY PRN ALLERGY RELIEF 03/05/20 07/11/25 Unknown metformin 500 mg tablet 500 mg PO BID 03/05/20 07/11/25 03/19/20 simvastatin 40 mg tablet 40 mg PO QPM 03/05/20 07/11/25 03/19/20 aspirin 81 mg tablet,delayed 81 mg PO QAM 03/12/20 07/11/25 03/19/20 release acetaminophen 500 mg tablet 500 mg PO QID PRN Pain 07/11/25 07/11/25 Unknown cholecalciferol (vitamin D3) 50 50 mcg PO QAM 07/11/25 07/11/25 Unknown mcg (2,000 unit) capsule (Vitamin D3) coenzyme Q10 100 mg capsule (Co 100 mg PO QAM 07/11/25 07/11/25 Unknown Q-10) horse chestnut seed extract 250 mg 250 mg PO BID 07/11/25 07/11/25 Unknown capsule turmeric root extract 500 mg tablet 500 mg PO BID 07/11/25 07/11/25 Unknown levothyroxine 75 mcg tablet 75 mcg PO DAILY 07/22/25 07/22/25 Unknown Past Medical History Medical History Degenerative disc disease Diabetes mellitus, type 2 NIDDM History of anesthesia reaction "sensitive to all narcotics" Hx of cancer of endometrium 2018- s/p hysterectomy; chemo and XRT Hx of migraines Hyperlipidemia hx Hypothyroidism Osteoarthritis Peripheral neuropathy minimal per pt, rt/lt feet from chemo Tinnitus Occ wears hearing aids Exercise / Class Metabolic Activity II 4-5 Yardwork/Stairs/Walk up hill (one flight of stairs- no chest pain or SOB ) Past Family History Family History Sister Family history of diabetes mellitus Family hx of colon cancer Past Surgical History Surgical History Breast lipoma LEFT SIDE REMOVED Fusion of spine 2009, lumbar H/O total hysterectomy laparoscopic, 2018 History of cataract surgery rt/lt History of colonoscopy History of laminectomy 1999, lumbar History of nasal septoplasty w/ sinus surgery History of removal of Port-a-Cath (03/27/20) Removal of mediport Dr. Nevarez 03-20-2020 History of tooth extraction Hx of lumpectomy left-lipoma removal [place] teeth removed Past Anesthesia History No Hx of Anesthesia Complications (does admit to "sensitivity" to medications, especially to narcotics ) and No Family Hx of Anesthesia Complications History of PONV No Hx of PONV and No Hx of Motion Sickness Social History Smoking Status: Never smoker Do You Dip or Chew Tobacco: No Hx Alcohol Use: Yes Alcohol type: wine alcohol intake frequency: holidays/special occasions only Hx Substance Use: No substance use type: does not use Review of Systems - Hx of snoring - denies apnea- no hx of sleep study Patient denies chest pain, shortness of breath, dyspnea on exertion, reflux, cough, wheezing, palpitations. No hx of seizures, stroke, [place]. No hx of blood clots or blood transfusions Physical Exam Vital Signs VITALS BP 161/74 (usually well controlled- usually 120s systolically at home per patient) P 75 TEMP 97.6 SP02 100% RESP 16 Constitutional no acute distress ENMT Mouth: no TMJ clicking Thyromental Distance: < 3.5 Finger Breadths (3.0) Mallampati Class: II Mouth / Teeth: 2 1. Crowns Permanent implant to side teeth Crowns to side teeth/molars/see picture Neck + limited neck extension Respiratory normal respiratory effort; no respiratory distress Auscultation: lungs clear to auscultation bilaterally; no wheezes Cardiovascular Rate/Rhythm: regular rate and regular rhythm Heart Sounds: no murmur Vessels: no carotid bruit Musculoskeletal Spine: no pain with cervical ROM Extremities: extremities normal to inspection Psychiatric Orientation: alert Lab Results Anesthesia Preop Results Results Anesthesia Widget: 2 WBC 6.31 K/ul (4.8-10.8) 07/22/25 Hgb 12.3 g/dL (12.0-16.0) 07/22/25 Hct 37.0 % (37.0-47.0) 07/22/25 Plt 229 K/uL (130-400) 07/22/25 Na 139 mmol/L (136-145) 07/22/25 K 4.2 mmol/L (3.5-5.1) 07/22/25 Cl 106 mmol/L (98-107) 07/22/25 CO2 27 mmol/L (21-32) 07/22/25 BUN 19 mg/dl (6-23) 07/22/25 Creat 0.77 mg/dl (0.6-1.2) 07/22/25 Glucose Level 128 mg/dl (70-99(Fasting)) H 07/22/25 PT 10.6 Seconds (9.0-12.0) 07/22/25 PTT 25 Seconds (21-31) 07/22/25 INR 1.0 (0.9-1.1) 07/22/25 TSH 1.812 uIu/ml (0.300-4.500) 07/02/25 HA1c 6.2 % (4.5-5.6) H 07/02/25 Urine Color Yellow 07/22/25 Urine Appearance Clear (Clear) 07/22/25 Urine pH 5.5 (4.5-7.5) 07/22/25 Urine Specific [place] 1.013 (1.000-1.030) 07/22/25 Urine Protein Negative (Negative) 07/22/25 Urine Glucose (UA) Negative (Negative) 07/22/25 Urine Ketones Negative (Negative) 07/22/25 Urine Blood Trace (Negative) H 07/22/25 Urine Nitrite Negative (Negative) 07/22/25 Urine Bilirubin Negative (Negative) 07/22/25 Urine Urobilinogen Negative (Negative) 07/22/25 Urine Leukocyte Esterase Negative (Negative) 07/22/25 Urine WBC (Auto) 0-5 /hpf (0-5) 07/22/25 Urine RBC (Auto) 3-5 /hpf (0-2) H 07/22/25 Urine Hyaline Casts (Auto) 0-2 /lpf (0-2) 07/22/25 Urine Epithelial Cells (Auto) 0-2 /hpf (0-2) 07/22/25 Urine Bacteria (Auto) None Seen (None Seen) 07/22/25 Blood Type B Positive 07/22/25 Antibody Screen NEGATIVE 07/22/25 Testing Electrocardiogram Date: 02/25/25 SR at 74bpm Normal EKG Same as 09/12/2023 per confirming provider Chest X-Ray Date: 07/22/25 Findings: + NAD FINDINGS: The left-sided Yjoypd-d-Ljne catheter has been removed in the interim. The cardiac and mediastinal contours remain stable. There is no failure. There is no focal pulmonary consolidation. There are no pleural effusions. There is mild apical pleural thickening. Degenerative changes are present within the dorsal spine. Other Testing Internal Auditory Canal MRI 02/21/25= No acute intracranial abnormality. Unremarkable appearance of the internal auditory canals. Left mastoid effusion is new from 12/10/2024. Involutional changes with suggestion of mild chronic microvascular ischemic disease.
[~2025-08-05 07:55] MED LIST changes: -ASPCH81X PO; -CHOL100010 PO; -COEN100C11 PO; +DEXAMETHASONE SOD INJ 4 MG/ML VIAL ONE; -FEXO5TAB2 PO; -GLC/500 PO; +GLYCOPYRROLATE 0.2 MG/ML VIAL ONE; -IBUP-1050 PO; +LIDOCAINE 2% 2 ML VIAL/AMP(20MG/ML) INFIL ONE; -NAPR1TAB9 PO; +ONDANSETRON INJ 2 MG/ML 2 ML VIAL ONE; +PROPOFOL IV EMULSION 10 MG/ML 20 ML VIAL IV ONE; +ROCURONIUM BROMIDE 10 MG/ML 5 ML VIAL IV ONE; -SIMV40TA2 PO; +SUGAMMADEX SODIUM 200 MG/2 ML VIAL IV ONE
[2025-08-05] MEDS: LR 15ML/HR IV SCH (08:23)
--- NOTE | 2025-08-05 08:40 | History & Physical Bridge Note ---
Date of Service August 05, 2025 History & Physical Bridge Note I have examined the patient, reviewed the History & Physical and in the interval since the performance of the History & Physical I have noted the following changes of clinical significance: no changes noted
--- NOTE | 2025-08-05 08:41 | History & Physical Report ---
Date of Service August 05, 2025 Assessment & Plan (1) Lumbosacral spondylosis with radiculopathy: Plan: L5-S1 hardware removal, L4-L5 decompression fusion L3 kyphoplasty History of Present Illness Chief Complaint: Back and leg pain Primary Care Provider: Gaby Davidson This is a 79-year-old female known to the presents with chronic persistent back and leg pain of failing course of nonoperative care is here for surgical invention. Allergies Allergy/AdvReac Type Severity Reaction Status Date / Time narcotics AdvReac Intermediate "sensitive Uncoded 08/05/25 08:25 to ALL narcotics" Home Medications Medication Instructions Recorded Confirmed Type fexofenadine 60 mg tablet (Inge 60 mg PO DAILY PRN ALLERGY RELIEF 03/05/20 08/05/25 History Allergy) metformin 500 mg tablet 500 mg PO BID 03/05/20 08/05/25 History simvastatin 40 mg tablet 40 mg PO QPM 03/05/20 08/05/25 History aspirin 81 mg tablet,delayed 81 mg PO QAM 03/12/20 08/05/25 History release acetaminophen 500 mg tablet 500 mg PO QID PRN Pain 07/11/25 08/05/25 History cholecalciferol (vitamin D3) 50 50 mcg PO BID 07/11/25 08/05/25 History mcg (2,000 unit) capsule (Vitamin D3) coenzyme Q10 100 mg capsule (Co 100 mg PO QAM 07/11/25 08/05/25 History Q-10) horse chestnut seed extract 250 mg 250 mg PO BID 07/11/25 08/05/25 History capsule turmeric root extract 500 mg tablet 500 mg PO BID 07/11/25 08/05/25 History levothyroxine 75 mcg tablet 75 mcg PO DAILY 07/22/25 08/05/25 History Past Med/Surg History Problem List (Updated 08/05/25 @ 08:40 by David Eisenberg DO) Lumbosacral spondylosis with radiculopathy Encounter for pre-operative examination Pulsatile tinnitus of both ears Pulsatile tinnitus of left ear Sensorineural hearing loss, bilateral Impingement of right shoulder Traumatic tear of right rotator cuff Arm pain (Acute) Arthritis (Acute) Axillary pain (Acute) Postmenopausal bleeding (Acute) Tinnitus (Acute) Type 2 diabetes mellitus (Acute) Uterine cancer (Acute) 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 Bilateral periaortic lymph node sampling Invasive clear cell endometrial adenocarcinoma Stage pT1a pN0M0 Systemic chemotherapy 6 cycles Taxol and Carboplatin Status post completion of radiation therapy utilizing HDR cylinder treatments. 5 treatments were given. Total 3000 cGy. Medical History Degenerative disc disease Diabetes mellitus, type 2 NIDDM History of anesthesia reaction "sensitive to all narcotics" Hx of cancer of endometrium 2018- s/p hysterectomy; chemo and XRT Hx of migraines Hyperlipidemia hx Hypothyroidism Osteoarthritis Peripheral neuropathy minimal per pt, rt/lt feet from chemo Tinnitus Occ wears hearing aids Surgical History Breast lipoma LEFT SIDE REMOVED Fusion of spine 2009, lumbar H/O total hysterectomy laparoscopic, 2018 History of cataract surgery rt/lt History of colonoscopy History of laminectomy 1999, lumbar History of nasal septoplasty w/ sinus surgery History of removal of Port-a-Cath (03/27/20) Removal of mediport Dr. Nevarez 03-20-2020 History of tooth extraction Hx of lumpectomy left-lipoma removal [place] teeth removed Family History Sister Family history of diabetes mellitus Family hx of colon cancer Social History Smoking Status: Never smoker Second Hand Exposure: Yes (hx growing up); Do You Dip or Chew Tobacco: No; Tobacco Cessation Education Requested by Patient: No Hx Alcohol Use: Yes Alcohol type: wine Hx Substance Use: No Preferred Language: Romansh Communication Ability: Effective Pepper Picker Required: No Beliefs That Will Affect Care: None Current Living Situation: Spouse Other Information That Helps Us Care for You: No Feels Safe at Home: Yes Safety Concerns: Feels Safe At This Time Assistive Devices: Glasses and Hearing Aid - Bilateral Assistive Devices Comment: will leave hearing aids home DOS Physical Exam Physical Exam: Patient is alert and oriented Heart regular rhythm Lungs clear
[2025-08-05] MEDS: ACETAMINOPHEN 500 MG TAB PO SCH (08:51)
[2025-08-05] MEDS: LR 60ML/HR IV SCH (08:51)
[2025-08-05] MEDS: CeleBREX 200 MG CAP PO SCH (08:51)
[2025-08-05] MEDS: GABAPENTIN 300 MG CAP PO SCH (08:51)
[2025-08-05] MEDS ORDERED: ATROPINE SULFATE 0.1 MG/ML 10ML SYR IV PRN (09:04)
[2025-08-05] MEDS ORDERED: HYDROmorphone INJ 1 MG/ML SYRINGE IV PRN ×2 (09:04→13:26)
[2025-08-05] MEDS: BUPIVACAINE/EPINEPHRINE 0.25% 1:200,000 30 ML VIAL ONE (09:31)
[2025-08-05] MEDS ORDERED: PHENYLEPHRINE 100MCG/ML 5ML SYR ONE (10:09)
[2025-08-05] MEDS: FLOSEAL HEMOSTATIC MATRIX 10ML TOP ONE (11:09)
[2025-08-05] MEDS: ceFAZolin 330 MG/ML 1 GM VIAL ONE ×3 (11:15→11:18)
[2025-08-05] MEDS: IOPAMIDOL INJ 61% 15 ML VIAL INSTIL ONE (11:19)
--- NOTE | 2025-08-05 11:21 | Fluoroscopy Report ---
FL lumbar spine 2-3V CLINICAL HISTORY: L5-S1 HARDWARE REMOVAL, L4-5 D/F, L3 KYPHO COMPARISON STUDY: None FLUOROSCOPY TIME: 1 minute 28 seconds FLUOROSCOPY IMAGES: 2 EXPOSURE DOSE: 62 mGy FINDINGS: Fluoroscopy was provided for lumbar surgery. IMPRESSION: Intraoperative fluoroscopy. ACT 112: Negative or not required by law. Electronically signed by: Jorje Baird M.D. 08/05/2025 11:20 AM
--- NOTE | 2025-08-05 11:24 | Operative Report ---
Post Operative Report Pre & Post Diagnosis Operation Date: 08/05/25 09:15 Pre-Op Diagnosis: #1 lumbar spondylosis with radiculopathy #2 lumbar spondylolisthesis #3 lumbar spinal stenosis #4 osteoporotic compression fracture L3 Post-Op Diagnosis: Same I identified the patient and participated in the time-out.: Yes Procedure Operation Date: 08/05/25 09:15 Actual Procedures #1 removal of posterior instrumentation L5-S1. #2 exploration of fusion L5-S1. #3 lumbar decompression with bilateral medial facetectomies and foraminotomies L3-L4 L4-L5. #4 posterior spinal fusion L4-L5 and #5 placement posterior instrumentation L4-S1. #6 placement infuse collagen sponge, with Koros bone graft the posterior gutters L4-L5. #7 kyphoplasty of the L3 and L4 vertebral bodies. Surgeon David Eisenberg, DO [employer] Rabia Barahona Estimated Blood Loss 250 Findings See Below Patient had significant dural ectasia and scarring at the L4-L5 level. I did encounter an incidental durotomy requiring repair. This had at least 30% increased operative time and marked increased difficulty. I am recommending a modifier 22. Specimens None Indications This is a 79-year-old female well-known to me that presents with not much diagnosis after failing course of nonoperative care she is here for surgical invention. Description of Procedure Patient was met with identified informed consent obtained. Patient was then taken to the operative suite underwent intubation placed in a prone position on the Emmanuel table atop the Carmelo frame. All bony prominences well-padded eyes inspected to ensure no external pressure placed upon them. This point lumbar spine was prepped and draped in normal sterile fashion. Sharp dissection with the assistance of Bovie cautery performed down to and exposing the lamina and transverse processes of L3-L4 and instrumentation at L5-S1 bilaterally. Then proceeded to remove the hardware bilaterally noting the fusion mass to be mature and intact. Informed complete laminectomy of L4 encountering erosion of the medial facet on the left into the dura. There was marked dural ectasia. I placed a patch of DuraGen over the defect. This is followed by DuraSeal. I then performed a partial laminectomy of L3 with bilateral medial facetectomies to address all stenosis. I then created channels for the pedicle screws at the L4 level bilaterally. Prior to placement the screws I inserted 20 mm Kyphon balloons into the L4 vertebral body and sequentially inflated these balloons. They were subsequently removed and approximately 6 cc of Kyphon cement injected into the L4 vertebral body demonstrating excellent interdigitation and fill. This is followed by placement of the L4 pedicle screws. I replaced screws in L5 and S1 bilaterally. I then with a pedicle screw gearshift created channels in the L3 vertebral body placing 220 mm Kyphon balloons into the L3 vertebral body sequentially inflating with fluoroscopic visualization. The balloons were subsequently removed and approximately 5 cc of Kyphon cement injected into L3 demonstrating excellent interdigitation and fill. The appropriate size rods were then placed and locked in position bilaterally. I explored the durotomy site noting no evidence of persistent CSF leak. The transverse processes of L 4 L5 burred to subcortical bleeding bone. Koros combined with infuse collagen sponge placed posterior lateral gutters. Incision was then closed with 1 Vicryl the fascia 2-0 Vicryl subcutaneously and 4 Monocryl for fascial closure. Steri- Strips and sterile dressing placed. Patient waken taken PACU stable condition. Please note Rabia Barahona was present at the entire procedure and while the patient positioning complex portion of the surgery and final skin closure. I attest to the content of the Intraoperative Record and any orders documented therein. Any exceptions are noted below.
[2025-08-05] MEDS: ONDANSETRON INJ 2 MG/ML 2 ML VIAL IV PRN (11:48)
--- NOTE | 2025-08-05 12:32 | Anesthesiology Progress Note ---
Date of Service August 05, 2025 Anesthesia Post Procedure Vital Signs Vital Signs: Temp Pulse Pulse Resp BP Pulse Ox O2 Del Method 08/05/25 12:30 36.6 C 75 12 125/57 L 98 Room Air 08/05/25 12:15 76 12 139/57 L 96 Room Air 08/05/25 12:00 87 16 149/69 H 99 Room Air 08/05/25 11:50 92 H 16 158/65 H 100 Room Air 08/05/25 11:40 98 H 16 159/73 H 100 Oxymask 08/05/25 11:30 36.5 C 96 H 15 151/6 H 100 Oxymask 08/05/25 08:35 36.5 C 83 20 161/65 H 100 Room Air O2 Flow Rate 08/05/25 12:30 08/05/25 12:15 08/05/25 12:00 08/05/25 11:50 08/05/25 11:40 5 08/05/25 11:30 5 08/05/25 08:35 Pain Intensity Lower Back: Pain Intensity: 8 Back: Pain Intensity: 5 Transfer of Care Handoff Completed per policy Notes Mental Status: alert / awake / arousable and participated in evaluation Patient Amnestic to Procedure: Yes Nausea / Vomiting: adequately controlled Pain: adequately controlled Airway Patency, RR, SpO2: stable & adequate BP & HR: stable & adequate Hydration State: stable & adequate Anesthetic Complications: no major complications apparent and Pt Satisfied with anesthetic care
[2025-08-05] MEDS ORDERED: PROMETHAZINE 12.5 MG/50.5 ML BAG IV PRN (13:26)
[2025-08-05] MEDS ORDERED: SOD PHOSPHATE/SOD BIPHOSPHATE ENEMA 132 ML BTL PR PRN (13:26)
[2025-08-05] MEDS ORDERED: NALOXONE HCL 0.4 MG/1 ML VIAL/CARP IV PRN (13:26)
[2025-08-05] MEDS ORDERED: ONDANSETRON 4 MG OD TAB PO PRN (13:26)
[2025-08-05] MEDS ORDERED: METOCLOPRAMIDE HCL INJ 5 MG/ML 2 ML VIAL IV PRN (13:26)
[2025-08-05] MEDS ORDERED: ONDANSETRON INJ 2 MG/ML 2 ML VIAL IV PRN (13:26)
[2025-08-05] MEDS ORDERED: LORazepam Inj 0.5 MG in SYRINGE 0.25 ML IV PRN (13:26)
[2025-08-05] MEDS ORDERED: HYDROmorphone INJ 0.5 MG/0.5 ML SYR IV PRN (13:26)
[2025-08-05] MEDS ORDERED: FAMOTIDINE 20 MG TAB PO PRN (13:26)
[2025-08-05] MEDS ORDERED: DO NOT ADMINISTER FLU VACCINE PRN (13:26)
[2025-08-05] MEDS ORDERED: ALUMINUM/MAGNESIUM SUSP 30 ML UDC PO PRN (13:26)
[2025-08-05] MEDS ORDERED: DO NOT ADMINISTER PNEUMOCOCCAL VACCINE PRN (13:26)
[2025-08-05] MEDS ORDERED: diphenhydrAMINE Capsule 25 MG CAP PO PRN (13:26)
[2025-08-05] MEDS ORDERED: ACETAMINOPHEN 1,000 MG/100 ML VIAL IV PRN (13:26)
[2025-08-05] MEDS ORDERED: MAGNESIUM HYDROXIDE SUSP 30 ML UDC PO PRN (13:26)
[2025-08-05] MEDS ORDERED: PHARMACY GLYCEMIC MGMT CONSULT PRN (13:26)
[2025-08-05] MEDS ORDERED: FEXOFENADINE 60 MG TAB PO PRN (13:26)
--- NOTE | 2025-08-05 14:07 | Pharmacy Report ---
Pharmacy Glycemic Short Note 2 - Date of Service August 05, 2025 - Glycemic Short BSG Results (Last 24 hours): 08/05/25 08/05/25 08:20 11:34 POC Glucose 98 115 H OUTPATIENT ANTIDIABETIC REGIMEN: * METFORMIN 500 MG BID * A1c 6.2% 07/02/25 ASSESSMENT: * Patient admitted post spinal surgery, history of type II diabetes controlled on metformin outpatient * pre and post operative BSGs 98-115 mg/dL. Patient received 8 mg IV dexamethasone and will continue with dex 4 mg IV daily. * Will add novolog coverage for now, do not anticipate need for basal given outpatient requirement. Monitor for trend/adjustments PLAN FOR INPATIENT GLYCEMIC CONTROL: * Hold outpatient oral diabetes medications * Basal insulin * Hold * Bolus insulin * NovoLog per scale ACHS or Q6hrs while NPO * Goal Range: Low 110 mg/dL - High 160 mg/dL * Correction Factor: 40 mg/dL/unit * Nutritional / Prandial insulin per carb ratio of 1 unit per 20 grams CHO consumed
--- NOTE | 2025-08-05 14:33 | Hospitalist Consultation ---
Date of Consultation August 05, 2025 Assessment & Plan (1) Lumbosacral spondylosis with radiculopathy: (2) Type 2 diabetes mellitus: (3) Hypothyroidism: (4) Hyperlipidemia: Plan This is a 79 y/o female with lumbar spondylosis with radiculopathy, DM2, hypothyroidism, dyslipidemia, osteoporosis, and other history as outlined below who underwent L3 kyphoplasty, L4-L5 decompression fusion, and removal of L5-S1 hardware today by Dr. Eisenberg and for whom we have been consulted to assist with post-operative medical management. Currently pt has no specific complaints and feels like she is doing well. #POD #0 s/p L3 kyphoplasty, L4-L5 decompression fusion, L5-S1 hardware removal - Pain control, activity, DVT prophylaxis per primary team - Labs in the AM - CBC, BMP. Monitor for post-op blood loss anemia (EBL 250 ml) - Encourage incentive spirometry #Type 2 Diabetes - Glycemic pharmacist consulted - appreciate input - Hold Metformin while admitted - BSG ACHS - Advance diet as tolerated to diabetic diet #Hypothyroidism - Chronic, stable - continue levothyroxine #Dyslipidemia - Chronic, stable - continue statin Pt seen and reviewed with collaborating physician, Dr. La. Plan of care discussed and as outlined above. Thank you for this consultation. We will continue to follow the patient with you. A member of the hospitalist team is available 03/04 via the role in [employer]. Please don't hesitate to reach out with questions. Torey Richards PA-C Supervising Physician Co-Signing Physician Notes Attending addendum: The patient was seen and examined in medical floor She is status post L4-L5 decompression and fusion and also L5-S1 hardware removal and L3 kyphoplasty on 08/05/2025 She has been feeling much better without significant symptoms following the procedure On examination Lying in bed without any acute distress Remains hemodynamically stable Chest was clear to auscultate bilaterally HeartS1, S2 regular and no murmur Abdomenbenign Extremitiesno edema CNSalert, awake and oriented x 3 no focal neurodeficit Her preop labs, imaging studies and EKG noted Remains medically stable with type 2 diabetes, hypothyroidism and hyperlipidemia Will monitor her labs and electrolytes while in the hospital Management of spinal procedure as per orthospine Agree with assessment and plan as outlined above by Dora Richards PA-C and take the full responsibility of care in the hospital Total time taken to talk to the patient, examining her, reviewing chart and medications and plan of care was [address] Montserrat La History of Present Illness Reason for Consultation: Post-operative medical management Requesting Physician: Dr. David Eisenberg Attending Physician: David Eisenberg DO History of Present Illness This is a 79 y/o female with lumbar spondylosis with radiculopathy, DM2, hypothyroidism, dyslipidemia, osteoporosis, and other history as outlined below who underwent L3 kyphoplasty, L4-L5 decompression fusion, and removal of L5-S1 hardware today by Dr. Eisenberg and for whom we have been consulted to assist with post-operative medical management. Currently, pt is seen post-operatively and reports feeling well. She has some mild discomfort related to the surgery but pre-operative pain is significantly improved. She denies numbness or tingling in LE. She is tolerating liquids without difficulty. She had some initial post- operative nausea but this has improved. She denies chest pain, palpitations, dyspnea, RODRIGUEZ, dizziness. She reports having no issues after her prior back surgery fifteen years ago. Allergies Allergy/AdvReac Type Severity Reaction Status Date / Time Opioids - Morphine Analogues AdvReac Unknown Unknown Verified 08/05/25 13:43 Home Medications Medication Instructions Recorded Confirmed Type fexofenadine 60 mg tablet (Inge 60 mg PO DAILY PRN ALLERGY RELIEF 03/05/20 08/05/25 History Allergy) metformin 500 mg tablet 500 mg PO BID 03/05/20 08/05/25 History simvastatin 40 mg tablet 40 mg PO QPM 03/05/20 08/05/25 History aspirin 81 mg tablet,delayed 81 mg PO QAM 03/12/20 08/05/25 History release acetaminophen 500 mg tablet 500 mg PO QID PRN Pain 07/11/25 08/05/25 History cholecalciferol (vitamin D3) 50 50 mcg PO BID 07/11/25 08/05/25 History mcg (2,000 unit) capsule (Vitamin D3) coenzyme Q10 100 mg capsule (Co 100 mg PO QAM 07/11/25 08/05/25 History Q-10) horse chestnut seed extract 250 mg 250 mg PO BID 07/11/25 08/05/25 History capsule turmeric root extract 500 mg tablet 500 mg PO BID 07/11/25 08/05/25 History levothyroxine 75 mcg tablet 75 mcg PO DAILY 07/22/25 08/05/25 History Patient History Medical History Degenerative disc disease Diabetes mellitus, type 2 NIDDM History of anesthesia reaction "sensitive to all narcotics" Hx of cancer of endometrium 2018- s/p hysterectomy; chemo and XRT Hx of migraines Hyperlipidemia hx Hypothyroidism Osteoarthritis Peripheral neuropathy minimal per pt, rt/lt feet from chemo Tinnitus Occ wears hearing aids Surgical History Breast lipoma LEFT SIDE REMOVED Fusion of spine 2009, lumbar H/O total hysterectomy laparoscopic, 2018 History of cataract surgery rt/lt History of colonoscopy History of laminectomy 1999, lumbar History of nasal septoplasty w/ sinus surgery History of removal of Port-a-Cath (03/27/20) Removal of mediport Dr. Nevarez 03-20-2020 History of tooth extraction Hx of lumpectomy left-lipoma removal [place] teeth removed Family History Sister Family history of diabetes mellitus Family hx of colon cancer Social History Smoking Status: Never smoker Second Hand Exposure: Yes (hx growing up); Do You Dip or Chew Tobacco: No; Tobacco Cessation Education Requested by Patient: No Hx Alcohol Use: Yes Alcohol type: wine Hx Substance Use: No Preferred Language: Azeri Communication Ability: Effective Computer Systems Consultant Required: No Beliefs That Will Affect Care: None Current Living Situation: Spouse Other Information That Helps Us Care for You: No Feels Safe at Home: Yes Safety Concerns: Feels Safe At This Time Assistive Devices: Glasses and Hearing Aid - Bilateral Assistive Devices Comment: will leave hearing aids home DOS Review of Systems Review of Systems: All systems reviewed & are unremarkable except as noted in Subjective Physical Exam 2 Physical Exam: General: awake, alert, NAD HEENT: no scleral icterus, moist oral mucosa Neck: supple, trachea midline Heart: RRR Lungs: CTA bilaterally Abdomen: soft, NT, +BS Extremities: distal pulses intact and equal, no pedal edema Skin: warm and dry, no jaundice or rashes Neurologic: Ox3, no confusion or dysarthria, moving all extremities, sensation to light touch grossly intact distal bilateral LE Results & Data Results & Data Vital Signs (Past 12 Hours) Vital Signs Temp Pulse Pulse Resp BP Pulse Ox O2 Del Method 08/05/25 14:17 36.3 C L 92 H 18 125/64 98 Room Air 08/05/25 13:55 36.5 C 101 H 18 127/67 99 Room Air 08/05/25 13:19 36.3 C L 95 H 17 120/69 98 Room Air 08/05/25 13:10 36.9 C 08/05/25 13:00 75 12 117/50 L 96 Room Air 08/05/25 12:45 76 12 122/58 L 96 Room Air 08/05/25 12:30 36.6 C 75 12 125/57 L 98 Room Air 08/05/25 12:15 76 12 139/57 L 96 Room Air 08/05/25 12:00 87 16 149/69 H 99 Room Air 08/05/25 11:50 92 H 16 158/65 H 100 Room Air 08/05/25 11:40 98 H 16 159/73 H 100 Oxymask 08/05/25 11:30 36.5 C 96 H 15 151/6 H 100 Oxymask 08/05/25 08:35 36.5 C 83 20 161/65 H 100 Room Air O2 Flow Rate 08/05/25 14:17 08/05/25 13:55 08/05/25 13:19 08/05/25 13:10 08/05/25 13:00 08/05/25 12:45 08/05/25 12:30 08/05/25 12:15 08/05/25 12:00 08/05/25 11:50 08/05/25 11:40 5 08/05/25 11:30 5 08/05/25 08:35 Laboratory Results 08/05/25 08/05/25 08:20 11:34 POC Glucose 98 115 H Medications Administered Acetaminophen (Acetaminophen 500 Mg Tab) 1,000 mg PO PREOP VARGHESE Stop: 08/05/25 18:00 Last Admin: 08/05/25 08:51 Dose: 1,000 mg Documented By: MAGDALENA Celecoxib (Celebrex 200 Mg Cap) 200 mg PO PREOP VARGHESE Stop: 08/05/25 18:00 Last Admin: 08/05/25 08:51 Dose: 200 mg Documented By: MAGDALENA Gabapentin (Gabapentin 300 Mg Cap) 300 mg PO PREOP VARGHESE Stop: 08/05/25 18:00 Last Admin: 08/05/25 08:51 Dose: 300 mg Documented By: MAGDALENA Lactated Ringer's (Lr) 1,000 mls @ 15 mls/hr IV .Q24H VARGHESE Stop: 08/06/25 05:59 Last Infusion: 08/05/25 09:10 Dose: Infused Documented By: Admin: 08/05/25 08:23 Dose: 15 mls/hr Documented By: MAGDALENA Lactated Ringer's (Lr) 1,000 mls @ 60 mls/hr IV .[id number] VARGHESE Stop: 08/05/25 22:39 Last Admin: 08/05/25 08:51 Dose: Not Given Documented By: MAGDALENA Cefazolin Sodium (Ancef 2000mg) 2,000 mg in 15 mls @ 3.75 mls/min IV PREOP VARGHESE; Protocol Stop: 08/05/25 18:00 Last Admin: 08/05/25 09:08 Dose: 3.75 mls/min Documented By: [id number] Ondansetron HCl (Ondansetron Inj 2 Mg/Ml 2 Ml Vial) 4 mg IV ONCE PRN PRN Reason: PACU Use Only-Nausea/Vomiting Stop: 08/05/25 17:04 Last Admin: 08/05/25 11:48 Dose: 4 mg Documented By: PIA Discontinued Medications Bupivacaine HCl/Epinephrine Bitart (Bupivacaine/Epinephrine 0.25% 1:200,000 30 Ml Vial) Confirm Administered Dose 30 ml .ROUTE .STK-MED ONE Stop: 08/05/25 08:50 Last Admin: 08/05/25 09:31 Dose: 20 ml Documented By: LEEANNE Cefazolin Sodium (Cefazolin 330 Mg/Ml 1 Gm Vial) Confirm Administered Dose 990 mg .ROUTE .STK-MED ONE Stop: 08/05/25 08:50 Last Admin: 08/05/25 11:15 Dose: 1,000 mg Documented By: LEEANNE Cefazolin Sodium (Cefazolin 330 Mg/Ml 1 Gm Vial) Confirm Administered Dose 990 mg .ROUTE .STK-MED ONE Stop: 08/05/25 09:03 Last Admin: 08/05/25 11:18 Dose: 1,000 mg Documented By: GMB Cefazolin Sodium (Cefazolin 330 Mg/Ml 1 Gm Vial) Confirm Administered Dose 990 mg .ROUTE .STK-MED ONE Stop: 08/05/25 09:34 Last Admin: 08/05/25 11:18 Dose: 1,000 mg Documented By: GMB Iopamidol (Iopamidol Inj 61% 15 Ml Vial) 30 ml INSTIL ONCE ONE Stop: 08/05/25 11:12 Last Admin: 08/05/25 11:19 Dose: 30 ml Documented By: GMB Miscellaneous ( Floseal Hemostatic Matrix 10ml) 10 ml TOP ONCE ONE Stop: 08/05/25 11:09 Last Admin: 08/05/25 11:09 Dose: 7 ml Documented By: GMB (2) Type 2 diabetes mellitus Diabetes mellitus complication status: without complication Diabetes mellitus termite technician insulin use: without termite technician use Qualified Code(s): E11.9 - Type 2 diabetes mellitus without complications (3) Hypothyroidism Hypothyroidism type: unspecified Qualified Code(s): E03.9 - Hypothyroidism, unspecified (4) Hyperlipidemia Hyperlipidemia type: unspecified Qualified Code(s): E78.5 - Hyperlipidemia, unspecified
[2025-08-05] MEDS: LACTATED RINGER'S 1,000 ML IV SCH (15:19)
[2025-08-05] MEDS: INSULIN ASPART PER UNIT CHARGE SC SCH (17:47)
[2025-08-05] MEDS: SIMVASTATIN 40 MG TAB PO SCH (21:10)
[2025-08-05] MEDS: CHOLECALCIFEROL 25 MCG (1000 UNITS) TAB PO SCH (21:10)
[2025-08-05] MEDS: DOCUSATE SODIUM/SENNA 50/8.6MG TAB PO SCH (21:10)
[2025-08-06] MEDS: ACETAMINOPHEN 500 MG TAB PO PRN (00:53)
[2025-08-06 06:14] LABS: Hematocrit (blood only) 30.3 % (37.0-47.0); Hemoglobin 10.3 g/dL (12.0-16.0); Mean Corpuscular Hemoglobin 30.7 pg (25.0-34.0); Mean Corpuscular Volume 90.4 fL (80.0-100.0); RDW Standard Deviation 41.6 fL (36.4-46.3); Red Blood Count 3.35 M/uL (4.20-5.40); White Blood Count 6.82 K/ul (4.8-10.8)
[2025-08-06 06:15] LABS: Immature Granulocytes # (auto) 0.02 K/uL (0.01-0.20); Immature Granulocytes % (auto) 0.3 %; Platelet Count 205 K/uL (130-400)
[2025-08-06 06:33] LABS: Anion Gap 5.0 (3-11); Blood Urea Nitrogen 14.0 mg/dl (6-23); Calcium 8.9 mg/dl (8.6-10.3); Carbon Dioxide 29.0 mmol/L (21-32); Chloride 108.0 mmol/L (98-107); Creatinine Clr Calc Pharmacy 42.4 ml/min; Glucose 104.0 mg/dl (70-99(Fasting)); Potassium 4.3 mmol/L (3.5-5.1); Sodium 142.0 mmol/L (136-145)
[2025-08-06] MEDS ORDERED: NON-FORMULARY MEDICATION (Coenzyme Q10 [Co Q-10] 100 mg Capsule) PO SCH (09:00)
[2025-08-06] MEDS: POLYETHYLENE (MIRALAX) 17 GM PACK PO SCH (09:49)
[2025-08-06] MEDS: ASPIRIN 81 MG ECTAB PO SCH (09:50)
[2025-08-06] MEDS: LEVOTHYROXINE SODIUM 75 MCG TABLET PO SCH (09:50)
[2025-08-06] MEDS: dexAMETHasone 4 MG in SYRINGE 0 ML IV SCH (09:50)
--- NOTE | 2025-08-06 11:05 | Orthopedic Progress Note ---
Date of Service August 06, 2025 Assessment & Plan (1) Lumbosacral spondylosis with radiculopathy: Plan: At this time we will continue bed rest. She may raise the head of bed up to eat and read. I will assess her in the a.m. and begin bed to chair if tolerated. Admission and Anticipated Discharge Date Admission Date: August 05, 2025 Subjective Patient's pain is controlled with Tylenol. She denies any headaches nausea or vomiting. Leg symptoms improved. Physical Exam Physical Exam: Patient has good strength of testing lower extremities. Appears comfortable. Results & Data Vital Signs (Past 12 Hours) Vital Signs Temp Pulse Resp BP BP Pulse Ox O2 Del Method 08/06/25 07:58 36.8 C 67 18 130/76 99 Room Air 08/06/25 03:20 36.7 C 69 16 113/76 98 Room Air
[2025-08-06] MEDS ORDERED: Nursing to Pharmacy Communication SCH (13:15)
--- NOTE | 2025-08-06 13:22 | Pharmacy Report ---
Pharmacy Glycemic Short Note 2 - Date of Service August 06, 2025 - Glycemic Short BSG Results (Last 24 hours): 08/05/25 08/05/25 08/06/25 16:27 20:19 05:47 Glucose 104 H POC Glucose 189 H 122 H 08/06/25 08/06/25 07:41 11:32 Glucose POC Glucose 103 H 120 H OUTPATIENT ANTIDIABETIC REGIMEN: * METFORMIN 500 MG BID * A1c 6.2% 07/02/25 ASSESSMENT: 08/06: * Claire only required 2 units of insulin yesterday (both were bolus) * Fasting BSG was below goal this morning. Will continue to hold basal insulin. Will tighten correction factor, but will remove carb ratio for now. * She still continues on dexamethasone 4mg iv daily postop (through 08/08) so will continue to monitor need to increase insulin to cover. 08/05: * Patient admitted post spinal surgery, history of type II diabetes controlled on metformin outpatient * pre and post operative BSGs 98-115 mg/dL. Patient received 8 mg IV dexamethasone and will continue with dex 4 mg IV daily. * Will add novolog coverage for now, do not anticipate need for basal given outpatient requirement. Monitor for trend/adjustments PLAN FOR INPATIENT GLYCEMIC CONTROL: * Hold outpatient oral diabetes medications * Basal insulin * Hold * Bolus insulin * NovoLog per scale ACHS or Q6hrs while NPO * Goal Range: Low 110 mg/dL - High 160 mg/dL * Correction Factor: 30 mg/dL/unit * Nutritional / Prandial insulin per carb ratio: NONE
--- NOTE | 2025-08-06 16:01 | Hospitalist Progress Note ---
Date of Service August 06, 2025 Assessment & Plan (1) Lumbosacral spondylosis with radiculopathy: (2) Type 2 diabetes mellitus: (3) Hypothyroidism: (4) Hyperlipidemia: Plan This is a 79 y/o female with lumbar spondylosis with radiculopathy, DM2, hypothyroidism, dyslipidemia, osteoporosis, and other history as outlined below who underwent L3 kyphoplasty, L4-L5 decompression fusion, and removal of L5-S1 hardware today by Dr. Eisenberg and for whom we have been consulted to assist with post-operative medical management. Currently pt has no specific complaints and feels like she is doing well. #POD #1 s/p L3 kyphoplasty, L4-L5 decompression fusion, L5-S1 hardware removal #Acute blood loss anemia: Likely iso perioperative blood loss and dilutional component. Slight drop in hemoglobin to 10.3 from 12.3, no indication for blood transfusion. - Pain control, activity, DVT prophylaxis per primary team - Labs in the AM - CBC, BMP. Monitor for post-op blood loss anemia (EBL 250 ml) and need for transfusion - Encourage incentive spirometry #Type 2 Diabetes - Glycemic pharmacist consulted - appreciate input - Hold Metformin while admitted - BSG ACHS - Advance diet as tolerated to diabetic diet #Hypothyroidism - Chronic, stable - continue levothyroxine #Dyslipidemia - Chronic, stable - continue statin Admission and Anticipated Discharge Date Admission Date: August 05, 2025 Subjective Patient was seen and examined at bedside. Patient was lying in bed, on room air, NAD, resting comfortably. Patient reports improvement in her RLE radicular symptoms after the surgery, has not moved bowel. Physical Exam Physical Exam: General: awake, alert, NAD HEENT: no scleral icterus, moist oral mucosa Neck: supple, trachea midline Heart: RRR Lungs: CTA bilaterally Abdomen: soft, NT, +BS Extremities: distal pulses intact and equal, no pedal edema Skin: warm and dry, no jaundice or rashes Neurologic: Ox3, no confusion or dysarthria, moving all extremities, sensation to light touch grossly intact distal bilateral LE Low back dressing without soakage, CODY drain with serosanguineous output. Results & Data Results & Data Vital Signs (Past 12 Hours) Vital Signs Temp Pulse Resp BP Pulse Ox O2 Del Method 08/06/25 15:44 36.6 C 73 16 131/77 97 Room Air 08/06/25 11:18 36.8 C 81 18 124/68 98 Room Air 08/06/25 07:58 36.8 C 67 18 130/76 99 Room Air (2) Type 2 diabetes mellitus Diabetes mellitus rn concurrent review insulin use: without rn concurrent review use Diabetes mellitus complication status: without complication Qualified Code(s): E11.9 - Type 2 diabetes mellitus without complications (3) Hypothyroidism Hypothyroidism type: unspecified Qualified Code(s): E03.9 - Hypothyroidism, unspecified (4) Hyperlipidemia Hyperlipidemia type: unspecified Qualified Code(s): E78.5 - Hyperlipidemia, unspecified
[2025-08-07 06:49] LABS: Hematocrit (blood only) 31.2 % (37.0-47.0); Hemoglobin 10.5 g/dL (12.0-16.0); Mean Corpuscular Hemoglobin 30.3 pg (25.0-34.0); Mean Corpuscular Volume 89.9 fL (80.0-100.0); Platelet Count 215 K/uL (130-400); RDW Standard Deviation 42.0 fL (36.4-46.3); Red Blood Count 3.47 M/uL (4.20-5.40); White Blood Count 9.96 K/ul (4.8-10.8)
[2025-08-07] MEDS: LANTUS PER UNIT CHARGE SC SCH (09:06)
--- NOTE | 2025-08-07 09:26 | Orthopedic Progress Note ---
Date of Service August 07, 2025 Assessment & Plan (1) Lumbosacral spondylosis with radiculopathy: Plan: Today we will initiate bed to chair transfers she may have bathroom privileges today. Pending her progress today we will initiate physical therapy tomorrow. Admission and Anticipated Discharge Date Admission Date: August 05, 2025 Subjective Patient's back pain is controlled leg symptoms markedly improved. She denies any headache nausea or vomiting. Physical Exam Physical Exam: Patient is currently sitting up in bed. She is constricted testing. Results & Data Vital Signs (Past 12 Hours) Vital Signs Temp Pulse Resp BP BP Pulse Ox O2 Del Method 08/07/25 07:37 36.4 C L 77 18 129/63 97 Room Air 08/06/25 23:12 36.5 C 84 16 106/65 94 Room Air
--- NOTE | 2025-08-07 14:02 | Hospitalist Progress Note ---
Date of Service August 07, 2025 Assessment & Plan (1) Lumbosacral spondylosis with radiculopathy: (2) Type 2 diabetes mellitus: (3) Hypothyroidism: (4) Hyperlipidemia: Plan This is a 79 y/o female with lumbar spondylosis with radiculopathy, DM2, hypothyroidism, dyslipidemia, osteoporosis, and other history as outlined below who underwent L3 kyphoplasty, L4-L5 decompression fusion, and removal of L5-S1 hardware today by Dr. Eisenberg and for whom we have been consulted to assist with post-operative medical management. Currently pt has no specific complaints and feels like she is doing well. #POD #2 s/p L3 kyphoplasty, L4-L5 decompression fusion, L5-S1 hardware removal #Acute blood loss anemia: Likely iso perioperative blood loss and dilutional component. Slight drop in hemoglobin to 10.3 from 12.3, no indication for blood transfusion. - Pain control, activity, DVT prophylaxis per primary team - Labs in the AM - CBC, BMP. Monitor for post-op blood loss anemia (EBL 250 ml) and need for transfusion - Encourage incentive spirometry #Type 2 Diabetes - Glycemic pharmacist consulted - appreciate input - Hold Metformin while admitted - BSG ACHS - Advance diet as tolerated to diabetic diet #Hypothyroidism - Chronic, stable - continue levothyroxine #Dyslipidemia - Chronic, stable - continue statin Admission and Anticipated Discharge Date Admission Date: August 05, 2025 Subjective Patient was seen and examined at bedside. Patient was lying in bed, on room air, NAD, resting comfortably. Patient reports improvement in her RLE radicular symptoms after the surgery, has not moved bowel.Reports moving gas, denies abdominal pain. Physical Exam Physical Exam: General: awake, alert, NAD HEENT: no scleral icterus, moist oral mucosa Neck: supple, trachea midline Heart: RRR Lungs: CTA bilaterally Abdomen: soft, NT, +BS Extremities: distal pulses intact and equal, no pedal edema Skin: warm and dry, no jaundice or rashes Neurologic: Ox3, no confusion or dysarthria, moving all extremities, sensation to light touch grossly intact distal bilateral LE Low back dressing without soakage, CODY drain with serosanguineous output. Results & Data Results & Data Vital Signs (Past 12 Hours) Vital Signs Temp Pulse Resp BP Pulse Ox O2 Del Method 08/07/25 07:37 36.4 C L 77 18 129/63 97 Room Air (2) Type 2 diabetes mellitus Diabetes mellitus extermination inspector insulin use: without senior care use Diabetes mellitus complication status: without complication Qualified Code(s): E11.9 - Type 2 diabetes mellitus without complications (3) Hypothyroidism Hypothyroidism type: unspecified Qualified Code(s): E03.9 - Hypothyroidism, unspecified (4) Hyperlipidemia Hyperlipidemia type: unspecified Qualified Code(s): E78.5 - Hyperlipidemia, unspecified
[2025-08-08] MEDS: LORazepam 0.5 MG TAB PO PRN (02:35)
[2025-08-08 06:31] LABS: Hematocrit (blood only) 31.0 % (37.0-47.0); Hemoglobin 10.7 g/dL (12.0-16.0); Mean Corpuscular Hemoglobin 30.9 pg (25.0-34.0); Mean Corpuscular Volume 89.6 fL (80.0-100.0); Platelet Count 232 K/uL (130-400); RDW Standard Deviation 40.7 fL (36.4-46.3); Red Blood Count 3.46 M/uL (4.20-5.40); White Blood Count 9.40 K/ul (4.8-10.8)
[2025-08-08 08:16] VITALS: O2SAT 98
--- NOTE | 2025-08-08 08:34 | Orthopedic Progress Note ---
Date of Service August 08, 2025 Assessment & Plan (1) Lumbosacral spondylosis with radiculopathy: Admission and Anticipated Discharge Date Admission Date: August 05, 2025 Subjective Back pain controlled they tend not to get the like effects of storms back pain controlled leg symptoms improved. She is tolerating bed to chair and bathroom without difficulty. The catheter is removed. With back pain controlled Physical Exam Physical Exam: Patient is very comfortable. Good strength testing. Results & Data Vital Signs (Past 12 Hours) Vital Signs Temp Pulse Resp BP Pulse Ox O2 Del Method 08/08/25 07:00 36.5 C 80 18 156/78 H 98 Room Air 08/07/25 22:53 36.4 C L 79 18 119/66 96 Room Air
--- NOTE | 2025-08-08 13:26 | Hospitalist Progress Note ---
Date of Service August 08, 2025 Assessment & Plan (1) Lumbosacral spondylosis with radiculopathy: (2) Type 2 diabetes mellitus: (3) Hypothyroidism: (4) Hyperlipidemia: Plan This is a 79 y/o female with lumbar spondylosis with radiculopathy, DM2, hypothyroidism, dyslipidemia, osteoporosis, and other history as outlined below who underwent L3 kyphoplasty, L4-L5 decompression fusion, and removal of L5-S1 hardware today by Dr. Eisenberg and for whom we have been consulted to assist with post-operative medical management. Currently pt has no specific complaints and feels like she is doing well. #POD #3 s/p L3 kyphoplasty, L4-L5 decompression fusion, L5-S1 hardware removal #Acute blood loss anemia: Likely iso perioperative blood loss and dilutional component. Slight drop in hemoglobin to 10.3 from 12.3, no indication for blood transfusion. - Pain control, activity, DVT prophylaxis per primary team - Labs in the AM - CBC, BMP. Monitor for post-op blood loss anemia (EBL 250 ml) and need for transfusion - Encourage incentive spirometry #Type 2 Diabetes - Glycemic pharmacist consulted - appreciate input - Hold Metformin while admitted - BSG ACHS - Advance diet as tolerated to diabetic diet #Hypothyroidism - Chronic, stable - continue levothyroxine #Dyslipidemia - Chronic, stable - continue statin Admission and Anticipated Discharge Date Admission Date: August 05, 2025 Subjective Patient was seen and examined at bedside. Patient was lying in bed, on room air, NAD, resting comfortably. Patient reports improvement in her RLE radicular symptoms after the surgery, has not moved bowel.Reports moving gas, denies abdominal pain. Physical Exam Physical Exam: General: awake, alert, NAD HEENT: no scleral icterus, moist oral mucosa Neck: supple, trachea midline Heart: RRR Lungs: CTA bilaterally Abdomen: soft, NT, +BS Extremities: distal pulses intact and equal, no pedal edema Skin: warm and dry, no jaundice or rashes Neurologic: Ox3, no confusion or dysarthria, moving all extremities, sensation to light touch grossly intact distal bilateral LE Low back dressing without soakage, CODY drain with serosanguineous output. Results & Data Results & Data Vital Signs (Past 12 Hours) Vital Signs Temp Pulse Resp BP Pulse Ox O2 Del Method 08/08/25 07:00 36.5 C 80 18 156/78 H 98 Room Air (2) Type 2 diabetes mellitus Diabetes mellitus watermelon harvesting supervisor insulin use: without usp use Diabetes mellitus complication status: without complication Qualified Code(s): E11.9 - Type 2 diabetes mellitus without complications (3) Hypothyroidism Hypothyroidism type: unspecified Qualified Code(s): E03.9 - Hypothyroidism, unspecified (4) Hyperlipidemia Hyperlipidemia type: unspecified Qualified Code(s): E78.5 - Hyperlipidemia, unspecified
[2025-08-08 15:23] VITALS: RESP 16
[2025-08-08 23:12] VITALS: TEMP 97.5
[2025-08-09 07:20] VITALS: BP 134/82; PULSE 88
--- NOTE | 2025-08-09 11:16 | Hospitalist Progress Note ---
Date of Service August 09, 2025 Assessment & Plan (1) Lumbosacral spondylosis with radiculopathy: (2) Type 2 diabetes mellitus: (3) Hypothyroidism: (4) Hyperlipidemia: Plan This is a 79 y/o female with lumbar spondylosis with radiculopathy, DM2, hypothyroidism, dyslipidemia, osteoporosis, and other history as outlined below who underwent L3 kyphoplasty, L4-L5 decompression fusion, and removal of L5-S1 hardware today by Dr. Eisenberg and for whom we have been consulted to assist with post-operative medical management. Currently pt has no specific complaints and feels like she is doing well. #POD #4 s/p L3 kyphoplasty, L4-L5 decompression fusion, L5-S1 hardware removal #Acute blood loss anemia: Likely iso perioperative blood loss and dilutional component. Slight drop in hemoglobin to 10.3 from 12.3, no indication for blood transfusion. - Pain control, activity, DVT prophylaxis per primary team - Labs in the AM - CBC, BMP. Monitor for post-op blood loss anemia (EBL 250 ml) and need for transfusion - Encourage incentive spirometry #Type 2 Diabetes - Glycemic pharmacist consulted - appreciate input - Hold Metformin while admitted - BSG ACHS - Advance diet as tolerated to diabetic diet #Hypothyroidism - Chronic, stable - continue levothyroxine #Dyslipidemia - Chronic, stable - continue statin Admission and Anticipated Discharge Date Admission Date: August 05, 2025 Subjective Patient was seen and examined at bedside. Patient was sitting up in chair, on room air, NAD, resting comfortably. Patient reports improvement in her RLE radicular symptoms after the surgery, has not moved bowel. Reports moving gas, denies abdominal pain. Physical Exam Physical Exam: General: awake, alert, NAD HEENT: no scleral icterus, moist oral mucosa Neck: supple, trachea midline Heart: RRR Lungs: CTA bilaterally Abdomen: soft, NT, +BS Extremities: distal pulses intact and equal, no pedal edema Skin: warm and dry, no jaundice or rashes Neurologic: Ox3, no confusion or dysarthria, moving all extremities, sensation to light touch grossly intact distal bilateral LE Low back dressing without soakage, CODY drain with serosanguineous output. Results & Data Results & Data Vital Signs (Past 12 Hours) Vital Signs Temp Pulse Resp BP Pulse Ox O2 Del Method 08/09/25 07:17 36.4 C L 88 16 134/82 98 Room Air (2) Type 2 diabetes mellitus Diabetes mellitus jail insulin use: without jail use Diabetes mellitus complication status: without complication Qualified Code(s): E11.9 - Type 2 diabetes mellitus without complications (3) Hypothyroidism Hypothyroidism type: unspecified Qualified Code(s): E03.9 - Hypothyroidism, unspecified (4) Hyperlipidemia Hyperlipidemia type: unspecified Qualified Code(s): E78.5 - Hyperlipidemia, unspecified
--- NOTE | 2025-08-09 11:48 | Discharge Summary ---
Date of Service August 09, 2025 Admission HPI Per Admitting Provider This is a 79-year-old female known to the presents with chronic persistent back and leg pain of failing course of nonoperative care is here for surgical invention. Principal Diagnosis Lumbar spondylosis with radiculopathy Discharge Data Allergies Allergy/AdvReac Type Severity Reaction Status Date / Time Opioids - Morphine Analogues AdvReac Unknown Unknown Verified 08/05/25 13:43 Consultations 08/05/25 13:26 Consult Hospitalist Routine Procedures Performed Operation Date: 08/05/25 09:15 Actual Procedures p L4-L5 Decompression and Fusion, (Not Applicable) - David Eisenberg DO s L5-S1 Hardware Removal,(Not Applicable) - David Eisenberg DO s L3 Kyphoplasty(Not Applicable) - David Eisenberg DO Ordered Studies 08/05/25 09:15 FL lumbar spine 2-3V Routine Hospital Course (1) Lumbosacral spondylosis with radiculopathy: Patient with lumbar decompression fusion trial as well as taken the orthopedic for postoperative. Postoperatively she progressed appropriately. She was 1 day of bedrest and initiated ambulation and therapy tolerated this well. Denies any leg pain. Back pain controlled. Excellent strength testing subsidy discharged home. Discharge orders instructions from the chart for further review. Total Time Total Time Spent Total Time Spent (In Minutes): 20 minutes Discharge Plan Discharge Items Patient Disposition: Home - Self-Care Reason For Visit: Compression Fracture of L3 Vertebra Initial Encoun Discharge Diagnosis: Lumbar spondylosis with radiculopathy Activity: As commented below Non-emergency contact: Primary Care Provider Call non-emergency contact if: you have any medication questions Follow-up/Referrals: Gaby Davidson [Primary Care Provider] - Diet: Regular Addtl Attending Provider Instructions: ACTIVITY RECOMMENDATIONS: SELF CARE INSTRUCTIONS AFTER THORACIC/LUMBAR FUSIONS 1. You may walk to your tolerance. It is good exercise for your legs and back. Expect some back and intermittent leg aches and pains. 2. You may perform "counter-top" level activities (make a sandwich, trey with a project, etc.). 3. No bending or lifting of more than 10 pounds or back twisting of any nature (roll like a log when turning in bed). 4. You may ride in a car for 20-30 minutes at a time. No driving until after your first visit with your doctor. 5. Frequent changes of position and restricting sitting to 30 minutes at a time will help limit the amount of back spasms and stiffness you may experience. 6. You may discontinue the use of ambulatory aids (cane, crutches, etc.) once your strength and confidence allow. 7. You may warranty administrator the shower and let water strike your incision when you arrive home at least once daily. Do not take a tub bath, sit in a hot tub or go into a swimming pool until after your first recheck in the office. 8. You may resume previous diet. SPECIAL CARE INSTRUCTIONS: VERY IMPORTANT TO READ AND REVIEW A. Your surgical incision has been closed with a cosmetic suture under the skin that will dissolve in about 6 weeks. In 14 days, you can use a pair of clean scissors and cut the suture that is left outside of the skin at the ends of your incision. 1. The small skin tapes can be removed 7 days after surgery if they have not fallen off by that point. 2. You may keep the wound open to air as much as possible to promote healing after post-op day number 5 unless told otherwise by your doctor. 3. If you think the wound looks like it is becoming infected (redness or worsening drainage) and/or you are experiencing fever, chill or worsening back pain and muscle spasms, contact the office so that we may evaluate you as soon as possible. B. Complications are uncommon, but please contact us if you have any signs or symptoms of: 1. wound infection (fever higher than 102.5 degrees F, redness, separation of wound, drainage, or increasing pain from the incision) 2. blood clots in legs (pain, swelling, redness and warmth in legs) 3. urinary tract infection (fever higher than 102.5 degrees F, burning upon urination or increased frequency of urination) 4. nerve problems (inability to walk on your toes or heels, numbness, loss of bowel or bladder control) 5. any other symptoms that concern you C. Please call the office at if you have any concerns or questions about your operation or recovery. D. No smoking! Smoking drastically decreases the chance of a solid fusion. E. Do not take any anti-inflammatory medications (Indocin, Advil, Motrin, Aspirin, Naprosyn, etc.) as these may inhibit the chance of a solid fusion. Tylenol is okay to take for pain. MANAGING PAIN AFTER SPINAL SURGERY 1. Narcotic medication is intended for short-term use and will be provided for surgical pain. Surgical pain usually lasts for a period of 4-6 weeks. Narcotic medication includes Percocet, Vicodin, Darvocet, Tylenol #3 or Lortab. 2. Longer-term pain is more appropriately treated with non-narcotic medication such as Tylenol ES. 3. Muscle spasm is not appropriately treated with narcotics. Muscle relaxers such as Soma, Flexeril or Skelaxin can be used along with Tylenol ES. 4. Remember that we all live with some "aches and pains". This is not unusual or uncommon after an injury or as we get older. a. Back pain is expected and may include muscle spasms for 4 to 6 weeks after surgery. The pain should gradually improve. If the pain worsens for no apparent reason, please contact the office. b. Intermittent leg pain may also be experienced and should not be concerned about unless it worsens for no apparent reason. If so, please contact the office. 5. We will provide appropriate medication within the normal guidelines of their prescribed use. We will also be very cautious and aware of potential abuse and extended duration of patients' medication needs. a. Pain medications are for your comfort and to assist with sleep and rest so that the tissue can heal. They are not provided in order to return to normal activity and should not be used through the day. To do so or worsening pain at night can result from ongoing tissue damage and development of tolerance to the prescribed medicine. 6. Please allow 2-3 days to process refills. Prescriptions will not be mailed but must be picked up at the office. FOLLOW UP VISIT: Keep your scheduled follow-up appointment. Any questions, please call the office at . Pending Studies at Discharge: No Stand-Alone Forms: My [employer], Smoking Cessation Medications and IA Order Prescriptions: New tramadol 50 mg tablet 50 mg PO Q6H PRN (Reason: pain, moderate) Qty: 30 0RF Continued simvastatin 40 mg tablet 40 mg PO QPM fexofenadine [Inge Allergy] 60 mg tablet 60 mg PO DAILY PRN (Reason: ALLERGY RELIEF) metformin 500 mg tablet 500 mg PO BID aspirin 81 mg Tablet,Delayed Release (Dr/Ec) 81 mg PO QAM acetaminophen 500 mg Tablet 500 mg PO QID PRN (Reason: Pain) coenzyme Q10 [Co Q-10] 100 mg Capsule 100 mg PO QAM Rx Instructions: has not started yet cholecalciferol (vitamin D3) [Vitamin D3] 50 mcg (2,000 unit) Capsule 50 mcg PO BID turmeric root extract 500 mg Tablet 500 mg PO BID horse chestnut seed extract 250 mg Capsule 250 mg PO BID levothyroxine 75 mcg Tablet 75 mcg PO DAILY Rx Instructions: Takes 1 tablet six days weekly, skips levothyroxine one day a week Discharge Orders: Discharge Order (Routine); Ordered 08/09/25 Ordered By: David Eisenberg Admission Data Admit Date/Time: 08/05/25 11:29 Attending Provider: David Eisenberg Admit Provider: David Eisenberg Primary Care Provider: Gaby Davidson Other Providers: Serenity Mcmahon
== END 2025-08-09 13:51 | disposition home or self-care (01) | DRG 451 ==
LOC: ASU 07:55 → 3E 11:29